=== PATIENT | female | born 1965 | race Asian ===

== ENCOUNTER 2016-08-14 13:53 | Emergency (ER) | payer MEDICAID ==
[~2016-08-14] VITALS: Ht 170.2 cm; Wt 72.0 kg
[~2016-08-14 13:53] MED LIST: BACTDS PO; CEPH-443 PO; CETI10CA PO; KENC1 TOP; PRED20TA PO
[2016-08-14 14:09] VITALS: Ht 170.2 cm; Wt 72.0 kg
[2016-08-14] MEDS ORDERED: ELIM TOP (16:04)
[2016-08-14] MEDS ORDERED: HC30CR25 TOP (16:04)
[2016-08-14] MEDS ORDERED: BEN25 PO (16:05)
--- NOTE | 2016-08-14 16:11 | ERD ---
ER Documentation Chief Complaint Date/Time DATE: 08/14/16 TIME: 16:08 Chief Complaint RASH ON B/L LEGS AND ABDOMEN HPI This is a 51-year-old female presents to the ER with a rash that started on July 21. Patient states that she was given an antibiotic for the rash as the rash was wheezing. Patient states that rash has moved from her chest down to her arms, legs, abdomen, back. Rash is extremely itchy. Patient denies any fevers or chills. She denies any difficulty in breathing or any chest pain. There are no sick contacts at home. She has not traveled anywhere. ROS 12 point review of systems was done, all negative except per HPI. Medications Home Meds Active Scripts Diphenhydramine Hcl* (Benadryl*) 25 Mg Cap, 25 MG PO Q6, #30 CAP Prov:ANKIT GUARDADO 08/14/16 Hydrocortisone* Topical (Hydrocortisone* Topical) 2.5%-28.3 Gm Cream..g., 1 APPLIC TOP BID for 5 Days, #1 TUB Prov:ANKIT GUARDADO 08/14/16 Permethrin* (Elimite*) 5% Cr, 1 APPLIC TOP ONCE for 1 Day, TUB Prov:ANKIT GUARDADO 08/14/16 Triamcinolone Acetonide (Triamcinolone Acetonide) 0.1% - 15 Gm Cream.gm., 1 APPLIC TOP BID, #1 TUB Prov:WENDI BOJORQUEZ PA-C 07/21/16 Cetirizine Hcl* (Zyrtec*) 10 Mg Capsule, 10 MG PO DAILY, #10 TAB.CHEW Prov:WENDI BOJORQUEZ PA-C 07/21/16 Sulfamethoxazole-Trimethoprim* (Bactrim* DS) 800-160 Mg Tab, 1 TAB PO BID for 10 Days, TAB Prov:WENDI BOJORQUEZ PA-C 07/21/16 Cephalexin* (Keflex*) 500 Mg Capsule, 500 MG PO QID for 10 Days, CAP Prov:WENDI BOJORQUEZ PA-C 07/21/16 Prednisone* (Prednisone*) 20 Mg Tab, 40 MG PO DAILY for 4 Days, TAB Prov:WENDI BOJORQUEZC 07/21/16 PMhx/Soc History of Surgery: Yes (Spinal fusion) Hx Alcohol Use: Yes Hx Substance Use: No Hx Tobacco Use: No Physical Exam Vitals Vital Signs Date Time Temp Pulse Resp B/P Pulse Ox O2 Delivery O2 Flow Rate FiO2 08/14/16 14:09 98.1 86 16 136/74 98 Physical Exam GENERAL: The patient is well developed and appropriate for usual state of health , in no apparent distress. HEENT: Atraumatic. CHEST: Clear to auscultation bilaterally. There are no rales, wheezes or rhonchi. HEART: Regular rate and rhythm. No murmurs, clicks, rubs or gallops. EXTREMITIES: Full range of motion. NEURO: Alert and oriented. SKIN: there is areas of dry and peeling skin on bilateral hands, areas of excoriation on lower left leg. small papular rash that is dry in some areas on arms, abdomen and trunk. Procedures/MDM Differential Diagnosis: dermatitis, allergic urticaria, viral exanthem, insect bite, fungal infectio ,viral exanthem, hand foot mouth disease, , impetigo, cellulitis, abscess, oli yu syndrome, meningocemia, necrotizing fasciitis, myositis. This is a 51-year-old female that presents to the ER with a rash. At this time rash may be scabies that is extremely itchy however patient does have areas where it could be eczema. Patient will be treated for possibly scabies she also be sent home with steroids. She will be sent home with Benadryl for itching. Patient is to go to a women specialist for further evaluation. At this time I do not believe that rash is life-threatening as patient is afebrile and well-appearing. I do not believe this is an allergic reaction. Patient needs to follow-up with her primary care doctor within 1-2 days return to ER sooner if symptoms worsen. My medical decision making sure with the patient understands and agrees with plan Departure Diagnosis: Primary Impression: Rash Condition: Stable Patient Instructions: Self-Care for Skin Rashes Additional Instructions: Call your primary care doctor TOMORROW for an appointment during the next 1-2 days.See the doctor sooner or return here if your condition worsens before your appointment time. ANKIT GUARDADO Aug 14, 2016 16:11
== END 2016-08-14 16:18 | disposition home or self-care (01) ==
LOC: FTE 13:53
DX: R21 Rash and other nonspecific skin eruption (principal)
CPT/HCPCS: 99283

== ENCOUNTER 2017-07-31 17:24 | Emergency (ER) | END 2017-07-31 18:16 | disposition home or self-care (01) ==